=== PATIENT | female | born 1965 | race Two or more races ===

== ENCOUNTER 2018-04-15 00:46 | Emergency (ER) | payer OTHER ==
[~2018-04-15] VITALS: Ht 157.5 cm; Wt 64.4 kg
== END 2018-04-15 03:29 | disposition home or self-care (01) ==
LOC: ER 00:46
DX: S83.512A Sprain of anterior cruciate ligament of left knee, initial encounter (principal); X50.0XXA Overexertion from strenuous movement or load, initial encounter; Y93.01 Activity, walking, marching and hiking; Y92.89 Other specified places as the place of occurrence of the external cause; Y99.8 Other external cause status